=== PATIENT | female | born 1985 | race African-American/Black ===

== ENCOUNTER 2016-08-19 12:28 | Emergency (ER) | payer OTHER ==
[~2016-08-19] VITALS: Ht 160 cm; Wt 60.8 kg
[2016-08-19] MEDS ORDERED: DIPHENHYDRAMINE HCL 25 MG CAPSULE PO ONE (13:30)
--- NOTE | 2016-08-19 13:30 | ED.ADGEN ---
Past Medical History Past Medical History: Other Additional Past Medical Histor: Psych history Past Surgical History: No Surgical History Alcohol Use: None Drug Use: None Adult General Chief Complaint Chief Complaint: OTHER COMPLAINTS HPI HPI Patient is a 30 year old woman, who is on multiple psychoactive medications, who states that she began experiencing muscle shakings in her tongue and jaw today, who presents emergency department for evaluation. Denies any difficulty swallowing or breathing, no chest pain or shortness of breath. She states that she has been compliant with her medications, she does take benztropine, or uses Benadryl, states took her benztropine today but did not use Benadryl. She states she is experiencing similar lesions previously due to her medications. Her medications were last changed in May. [facility], and has not yet followed up with her primary. She contacted her social worker health services who told her to come to the ED for evaluation after he is experiencing fasciculations. She states that Benadryl has helped with this previously. Denies any drugs or alcohol today, states that she drank alcohol smoke cigarettes yesterday, denies any injuries, any sick contacts or exposures , any other complaints. Review of Systems Review of Systems Constitutional: Denies fever or chills. [] Eyes: Denies change in visual acuity. [] HENT: Denies nasal congestion or sore throat. Fasciculations of the mouth and jaw. Respiratory: Denies cough or shortness of breath. [] Cardiovascular: Denies chest pain or edema. [] GI: Denies abdominal pain, nausea, vomiting, bloody stools or diarrhea. [] : Denies dysuria. [] Musculoskeletal: Denies back pain or joint pain. [] Integument: Denies rash. [] Neurologic: Denies headache, focal weakness or sensory changes. [] Endocrine: Denies polyuria or polydipsia. [] Lymphatic: Denies swollen glands. [] Psychiatric: Denies depression or anxiety. [] Current Medications Current Medications Current Medications Medications (Trade) Dose Ordered Sig/Rhys Start Time Stop Time Status Last Admin Dose Admin Diphenhydramine HCl (Benadryl) 25 mg 1X ONCE 08/19/16 13:30 08/19/16 13:31 DC 08/19/16 13:31 25 MG Allergies Allergies Allergies Coded Allergies Type Severity Reaction Last Updated Verified codeine Allergy Unknown 09/24/13 Yes haloperidol Allergy Unknown 09/24/13 Yes risperidone Allergy Unknown 09/24/13 Yes Physical Exam Physical Exam Constitutional: Well developed, well nourished, no acute distress, non-toxic appearance. [] HENT: Normocephalic, atraumatic, bilateral external ears normal, oropharynx moist, no oral exudates, nose normal. [] Eyes: PERRLA, EOMI, conjunctiva normal, no discharge. [] Neck: Normal range of motion, no tenderness, supple, no stridor. [] Cardiovascular:Heart rate regular rhythm, no murmur on S1, S2, rubs or gallops. [] Lungs & Thorax: Bilateral breath sounds clear to auscultation , no wheezing, rhonchi, rales. No chest tenderness or crepitus. [] Abdomen: Bowel sounds normal, soft, no tenderness, no masses, no pulsatile masses. [] Skin: Warm, dry, no erythema, no rash. [] Back: No tenderness, no CVA tenderness. [] Extremities: No tenderness, no cyanosis, no clubbing, ROM intact, no edema. [] Neurologic: Alert and oriented X 3, normal motor function, normal sensory function, no focal deficits noted. Mild tongue fasciculations noted. [] Patient' s speech is clear and uninhibited. Psychologic: Affect normal, judgement normal, mood normal. [] Current Patient Data Lab Values Laboratory Tests Test 08/19/16 13:18 POC Urine HCG, Qualitative Hcg negative (Negative) EKG EKG Not indicated. [] Radiology/Procedures Radiology/Procedures Not indicated.[] Course & Med Decision Making Course & Med Decision Making Pertinent Labs and Imaging studies reviewed. (See chart for details) At time of my evaluation, patient states his symptoms have improved. Noted to still have mild tongue fasciculations occurring consistent with a dystonic reaction from her medications. She has had similar symptoms previously, treated with Benadryl, I did give her 25 malaise Benadryl in the ED, on reevaluation states that she is feeling much better, with resolution of the reaction. We discussed importance of continuing her medications as directed, she has an appointment to follow-up with her psychiatrist in 3 days, will return to the ED if any new or concerning symptoms develop. Patient discharged home in stable condition with all of her medications and perception for Benadryl, with plan as above. Dragon Disclaimer Dragon Disclaimer This electronic medical record was generated, in whole or in part, using a voice recognition dictation system. Departure Impression: Primary Impression: Acute dystonic reaction due to drugs Disposition: HOME, SELF-CARE Condition: IMPROVED Scripts Diphenhydramine Hcl (Benadryl)25 Mg [id number] Mg PO Q6-8HRS PRN DYSTONIC REACTION #14 Prov:JUAN SCHAFFER DO 08/19/16 JUAN SCHAFFER DO Aug 19, 2016 13:30
[2016-08-19] MEDS ORDERED: DIPH25CA58 PO (15:31)
[2016-08-19 16:00] VITALS: BP 114/76
== END 2016-08-19 16:00 | disposition home or self-care (01) ==
LOC: ER 12:28
DX: G24.02 Drug induced acute dystonia (principal); T44.3X5A Adverse effect of other parasympatholytics [anticholinergics and antimuscarinics] and spasmolytics, initial encounter; R25.3 Fasciculation; Z88.5 Allergy status to narcotic agent; Z88.8 Allergy status to other drugs, medicaments and biological substances; Z86.59 Personal history of other mental and behavioral disorders; Y92.89 Other specified places as the place of occurrence of the external cause
CPT/HCPCS: 81025; 99283; Q0163; 99282

== ENCOUNTER 2016-09-06 09:49 | Emergency (ER) | payer OTHER ==
[~2016-09-06] VITALS: Ht 160 cm; Wt 68.5 kg
[~2016-09-06 09:49] MED LIST: DIPH25CA58 PO
[2016-09-06 10:10] VITALS: BP 135/87
[2016-09-06] MEDS ORDERED: HYDROXYZINE IM 50 MG/ML VIAL. IM ONE (11:00)
[2016-09-06] MEDS ORDERED: HYDR25TA PO (11:12)
--- NOTE | 2016-09-06 11:12 | PHYS DOC ---
Past Medical History Past Medical History: Bipolar, Other Additional Past Medical Histor: Psych history, psychosis Past Surgical History: No Surgical History Alcohol Use: Occasionally Drug Use: None Adult General Chief Complaint Chief Complaint: ALLERGIC REACTION HPI HPI This is a 30-year-old female with known history of psychosis he is on multiple antipsychotics who states she's had significant job pain and swelling and is taking benztropine for spasm related to her antipsychotics. She states her jaw pain and swelling is still severe despite taking her medications. Patient states she has no chest pain or shortness of breath. She is speaking in complete sentences and saturating near 100% on room air. Review of Systems Review of Systems Constitutional: Denies fever or chills [] Eyes: Denies change in visual acuity, redness, or eye pain [] HENT: Denies nasal congestion or sore throat [] Respiratory: Denies cough or shortness of breath [] Cardiovascular: No additional information not addressed in HPI [] GI: Denies abdominal pain, nausea, vomiting, bloody stools or diarrhea [] : Denies dysuria or hematuria [] Musculoskeletal: Denies back pain or joint pain [] Integument: Denies rash or skin lesions [] Neurologic: Denies headache, focal weakness or sensory changes [] Endocrine: Denies polyuria or polydipsia [] Current Medications Current Medications Current Medications Medications (Trade) Dose Ordered Sig/Rhys Start Time Stop Time Status Last Admin Dose Admin Hydroxyzine HCl (Vistaril Im) 25 mg 1X ONCE 09/06/16 11:00 09/06/16 11:01 DC 09/06/16 11:15 25 MG Allergies Allergies Allergies Coded Allergies Type Severity Reaction Last Updated Verified codeine Allergy Intermediate 09/06/16 Yes haloperidol Allergy Intermediate 09/06/16 Yes risperidone Allergy Intermediate 09/06/16 Yes Physical Exam Physical Exam Constitutional: Well developed, well nourished, no acute distress, non-toxic appearance. [] HENT: Normocephalic, atraumatic, bilateral external ears normal, oropharynx moist, no oral exudates, nose normal. [] Eyes: PERRLA, EOMI, conjunctiva normal, no discharge. [] Neck: Normal range of motion, no tenderness, supple, no stridor. [] Cardiovascular:Heart rate regular rhythm, no murmur [] Lungs & Thorax: Bilateral breath sounds clear to auscultation [] Abdomen: Bowel sounds normal, soft, no tenderness, no masses, no pulsatile masses. [] Skin: Warm, dry, no erythema, no rash. [] Back: No tenderness, no CVA tenderness. [] Extremities: No tenderness, no cyanosis, no clubbing, ROM intact, no edema. [] Neurologic: Alert and oriented X 3, normal motor function, normal sensory function, no focal deficits noted. [] Psychologic: Affect normal, judgement normal, mood normal. [] Current Patient Data Vital Signs Vital Signs Date Time Temp Pulse Resp B/P Pulse Ox O2 Delivery O2 Flow Rate FiO2 09/06/16 10:10 98.2 98 17 135/87 96 Room Air 98.2 EKG EKG [] Radiology/Procedures Radiology/Procedures [] Course & Med Decision Making Course & Med Decision Making Pertinent Labs and Imaging studies reviewed. 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 There is no indication perform any laboratory workup or imaging. Her exam is essentially benign. She is discharged without incident. Dragon Disclaimer Dragbryanna Disclaimer This electronic medical record was generated, in whole or in part, using a voice recognition dictation system. Departure Departure Impression: Primary Impression: Jaw pain Additional Impression: Jaw swelling Disposition: HOME, SELF-CARE Admitting Physician: Other Condition: STABLE Referrals: UNKNOWN PCP NAME (PCP) Additional Instructions: Please take your medication as prescribed. Return to the ER if you develop any worsening of your symptoms. Follow up closely with your primary doctor in the next several days. Scripts Hydroxyzine Hcl 25 Mg [id number] Mg PO BID PRN jaw swelling #15 TAB Prov:ELFEGO GUZMAN DO 09/06/16 Problem Qualifiers ELFEGO GUZMAN DO Sep 06, 2016 11:12
== END 2016-09-06 11:35 | disposition home or self-care (01) ==
LOC: ER 09:49
DX: R68.84 Jaw pain (principal); R22.0 Localized swelling, mass and lump, head; R25.2 Cramp and spasm; F31.9 Bipolar disorder, unspecified; F29 Unspecified psychosis not due to a substance or known physiological condition; Z88.8 Allergy status to other drugs, medicaments and biological substances; Z88.5 Allergy status to narcotic agent; Z79.899 Other long term (current) drug therapy
CPT/HCPCS: 96372; 99283; J3410

== ENCOUNTER 2016-12-26 09:03 | Emergency (ER) | payer OTHER ==
[~2016-12-26] VITALS: Ht 185.4 cm; Wt 72.1 kg
[~2016-12-26 09:03] MED LIST changes: +HYDR25TA PO
--- NOTE | 2016-12-26 09:12 | PHYS DOC ---
Past Medical History Past Medical History: Bipolar, Other Additional Past Medical Histor: Psych history, psychosis Past Surgical History: No Surgical History Alcohol Use: Occasionally Drug Use: None Adult General Chief Complaint Chief Complaint: OTHER COMPLAINTS [facility] HPI Patient is a 31 year old -[place] female who presents with wanting to stop her court ordered antipsychotics. Patient states she was seen here about 3 months ago and was told to stop taking her antipsychotics and wants a paper stating that she can stop taking them. He states that the medicine makes her tongue swell. She denies any tongue swelling, troubles breathing, swallowing or other concerns. She denies any fevers chills nausea vomiting or abdominal pain. She denies suicidal or homicidal ideations. She states that she can get in to see her primary care physician Dr. Barraza until March. Review of Systems Review of Systems Constitutional: Denies fever or chills [] Eyes: Denies change in visual acuity, redness, or eye pain [] HENT: Denies nasal congestion or sore throat [] Respiratory: Denies cough or shortness of breath [] Cardiovascular: No additional information not addressed in HPI [] GI: Denies abdominal pain, nausea, vomiting, bloody stools or diarrhea [] : Denies dysuria or hematuria [] Musculoskeletal: Denies back pain or joint pain [] Integument: Denies rash or skin lesions [] Neurologic: Denies headache, focal weakness or sensory changes [] Endocrine: Denies polyuria or polydipsia [] Allergies Allergies Allergies Coded Allergies Type Severity Reaction Last Updated Verified codeine Allergy Intermediate 09/06/16 Yes haloperidol Allergy Intermediate 09/06/16 Yes risperidone Allergy Intermediate 09/06/16 Yes Physical Exam Physical Exam Constitutional: Well developed, well nourished, no acute distress, non-toxic appearance. [] HENT: Normocephalic, atraumatic, bilateral external ears normal, oropharynx moist, no oral exudates, nose normal. [] Eyes: PERRLA, EOMI, conjunctiva normal, no discharge. [] Neck: Normal range of motion, no tenderness, supple, no stridor. [] Cardiovascular:Heart rate regular rhythm, no murmur [] Lungs & Thorax: Bilateral breath sounds clear to auscultation [] Abdomen: Bowel sounds normal, soft, no tenderness, no masses, no pulsatile masses. [] Skin: Warm, dry, no erythema, no rash. [] Back: No tenderness, no CVA tenderness. [] Extremities: No tenderness, no cyanosis, no clubbing, ROM intact, no edema. [] Neurologic: Alert and oriented X 3, normal motor function, normal sensory function, no focal deficits noted. [] Psychologic: Affect normal, judgement normal, mood normal. [] Current Patient Data Vital Signs Vital Signs Date Time Temp Pulse Resp B/P (MAP) Pulse Ox O2 Delivery O2 Flow Rate FiO2 12/26/16 09:09 98.3 95 16 123/88 (100) 99 Room Air 98.3 EKG EKG [] Radiology/Procedures Radiology/Procedures [] Impressions: Medication review Course & Med Decision Making Course & Med Decision Making Pertinent Labs and Imaging studies reviewed. (See chart for details) Patient was seen by Tahir who spoke with the patient's social economist and she does have an MYRANDA, which stands for outpatient treatment order by a muck miner blasting that she needs to continue her medications. I reviewed her last ER note which states she needs to continue taking her medicines. She is on medicines for the side effects of her antipsychotics. On my exam she doesn't have any shortness of breath, tongue swelling or other reasons to stop this. She does have a lockstitch front maker that she can follow-up with. She's being discharged home and instructed to continue taking her medicines and return the ER if there is any serious concerns. Return precautions given she is agreeable to the plan and being discharged in stable condition this time. Geraldine Disclaimer Geraldine Disclaimer This electronic medical record was generated, in whole or in part, using a voice recognition dictation system. Departure Departure Impression: Primary Impression: Medication care plan discussed with patient Disposition: HOME, SELF-CARE Condition: STABLE Referrals: UNKNOWN PCP NAME (PCP) Patient Instructions: Generic Medications Additional Instructions: You were seen today in the ER regarding your current medications. You will need to continue these medications as they are court ordered and at this time and do not see a reason for you to stop them. You will need to follow-up with your lockstitch front maker at [facility]. Return ER if you have any troubles breathing, swallowing, or other concerns. HELEN ROJAS MD Dec 26, 2016 09:12
[2016-12-26 10:27] VITALS: BP 120/85
== END 2016-12-26 10:27 | disposition home or self-care (01) ==
LOC: ER 09:03
DX: F29 Unspecified psychosis not due to a substance or known physiological condition (principal); F31.9 Bipolar disorder, unspecified; Z88.5 Allergy status to narcotic agent; Z88.8 Allergy status to other drugs, medicaments and biological substances
CPT/HCPCS: 99284

== ENCOUNTER 2017-01-03 07:35 | Emergency (ER) | payer OTHER ==
[~2017-01-03] VITALS: Ht 170.2 cm; Wt 72.1 kg
[2017-01-03 08:08] VITALS: BP 136/99
[2017-01-03] MEDS ORDERED: diphenhydrAMINE HCL 25 MG CAPSULE PO ONE (08:45)
--- NOTE | 2017-01-03 09:16 | PHYS DOC ---
Past Medical History Past Medical History: Bipolar, Seizure, Schizophrenia, Other Additional Past Medical Histor: Psych history,psychosis,TBI,"ECHOVIRUS, HYPERHYDROSIS" Past Surgical History: No Surgical History Alcohol Use: Occasionally Drug Use: Cocaine, Marijuana Adult General Chief Complaint Chief Complaint: OTHER COMPLAINTS [facility] HPI Patient is a 31 year old female presents to the emergency department stating that she was stung by a bee today. She states that when she woke up she noticed that the bee sting. Patient also states that she feels as though the stinger is traveling throughout her body. Patient states that she is also in a drug rehabilitation for relapse program. Patient states that she has not taken anything for the discomfort. She does state however she is feeling as though this stinger is moving throughout her body Review of Systems Review of Systems Constitutional: Denies fever or chills [] Eyes: Denies change in visual acuity, redness, or eye pain [] HENT: Denies nasal congestion or sore throat [] Respiratory: Denies cough or shortness of breath [] Cardiovascular: No additional information not addressed in HPI [] GI: Denies abdominal pain, nausea, vomiting, bloody stools or diarrhea [] : Denies dysuria or hematuria [] Musculoskeletal: Denies back pain or joint pain [] Integument: Denies rash or skin lesions. Complaint of redness and tenderness to the right posterior thigh. Neurologic: Denies headache, focal weakness or sensory changes [] Endocrine: Denies polyuria or polydipsia [] Current Medications Current Medications Current Medications Medications (Trade) Dose Ordered Sig/Rhys Start Time Stop Time Status Last Admin Dose Admin Diphenhydramine HCl (Benadryl) 25 mg 1X ONCE 01/03/17 08:45 01/03/17 08:46 DC 01/03/17 08:54 25 MG Allergies Allergies Allergies Coded Allergies Type Severity Reaction Last Updated Verified codeine Allergy Intermediate 09/06/16 Yes haloperidol Allergy Intermediate 09/06/16 Yes risperidone Allergy Intermediate 09/06/16 Yes Physical Exam Physical Exam Constitutional: Well developed, well nourished, no acute distress, non-toxic appearance. [] HENT: Normocephalic, atraumatic, bilateral external ears normal, oropharynx moist, no oral exudates, nose normal. [] Eyes: PERRLA, EOMI, conjunctiva normal, no discharge. [] Neck: Normal range of motion, no tenderness, supple, no stridor. [] Cardiovascular:Heart rate regular rhythm Lungs & Thorax: No respiratory distress noted Skin: Warm, dry, no erythema, no rash. Right posterior thigh appears to be slightly red although I do not see any drainage or discharge coming from the site area does not appear to have any streaking noted. Back: No tenderness Extremities: No tenderness, no cyanosis, no clubbing, ROM intact, no edema. [] Neurologic: Alert and oriented X 3, normal motor function, normal sensory function, no focal deficits noted. [] Psychologic: Affect normal, judgement normal, mood normal. [] Current Patient Data Vital Signs Vital Signs Date Time Temp Pulse Resp B/P (MAP) Pulse Ox O2 Delivery O2 Flow Rate FiO2 01/03/17 08:08 98.8 87 16 97 Room Air 98.8 EKG EKG [] Radiology/Procedures Radiology/Procedures [] Course & Med Decision Making Course & Med Decision Making Pertinent Labs and Imaging studies reviewed. (See chart for details) Patient seems to ramble as I am talking with her. She denies taking any recreational drugs at this time. Patient was provided with the Benadryl here in the emergency department. She'll be discharged home in stable condition signs and symptoms to return back to emergency department has been provided. Recommended the patient continue to use Benadryl 25 mg every 6 hours to help with itching and irritation. Also recommended that she follow up with her primary care physician in the next 3-5 days if she continues to have problems and discomfort. Patient agrees with discharge instructions treatment regimens and follow-up recommendations. She'll be discharged home in stable condition. [] Dragon Disclaimer Dragon Disclaimer This electronic medical record was generated, in whole or in part, using a voice recognition dictation system. Departure Departure Impression: Primary Impression: Bee sting Disposition: 01 HOME, SELF-CARE Condition: STABLE Referrals: UNKNOWN PCP NAME (PCP) Patient Instructions: Bee, Wasp, or Hornet Sting Additional Instructions: Keep the area clean and dry. Keep the area as cool as possible to prevent irritation and itching and burning. Benadryl 25 mg every 6 hours as needed for irritation. This medication will cause drowsiness do not take any be alert and oriented. Follow-up with your primary care physician in the next 3-5 days. Return back to the emergency department for signs and symptoms of become worse. BLAKE SANTOS APRN Jan 03, 2017 09:16
== END 2017-01-03 09:20 | disposition home or self-care (01) ==
LOC: ER 07:35
DX: T63.441A Toxic effect of venom of bees, accidental (unintentional), initial encounter (principal); F20.9 Schizophrenia, unspecified; F31.9 Bipolar disorder, unspecified; F14.10 Cocaine abuse, uncomplicated; F12.10 Cannabis abuse, uncomplicated; Z88.5 Allergy status to narcotic agent; Z87.820 Personal history of traumatic brain injury; Z88.8 Allergy status to other drugs, medicaments and biological substances; Y92.89 Other specified places as the place of occurrence of the external cause
CPT/HCPCS: 99282; Q0163

== ENCOUNTER 2017-03-13 11:03 | Emergency (ER) | payer OTHER ==
[~2017-03-13] VITALS: Ht 160 cm; Wt 67.6 kg
--- NOTE | 2017-03-13 11:19 | PHYS DOC ---
Past Medical History Past Medical History: Bipolar, Seizure, Schizophrenia, Other Additional Past Medical Histor: Psych history,psychosis,TBI,"ECHOVIRUS, HYPERHYDROSIS" Past Surgical History: No Surgical History Alcohol Use: Occasionally Drug Use: Cocaine, Marijuana Adult General Chief Complaint Chief Complaint: TONGUE SWELLING/INJURY HPI HPI Patient is a 31 year old female presents to the emergency department with request for a tongue exam. Patient states she is making sure she doesn't have thrush. He has no complaint Review of Systems Review of Systems Constitutional: Denies fever or chills [] Eyes: Denies change in visual acuity, redness, or eye pain [] HENT: Denies nasal congestion or sore throat [] Respiratory: Denies cough or shortness of breath [] Cardiovascular: No additional information not addressed in HPI [] GI: Denies abdominal pain, nausea, vomiting, bloody stools or diarrhea [] : Denies dysuria or hematuria [] Musculoskeletal: Denies back pain or joint pain [] Integument: Denies rash or skin lesions [] Neurologic: Denies headache, focal weakness or sensory changes [] Endocrine: Denies polyuria or polydipsia [] Allergies Allergies Allergies Coded Allergies Type Severity Reaction Last Updated Verified codeine Allergy Intermediate 09/06/16 Yes haloperidol Allergy Intermediate 09/06/16 Yes risperidone Allergy Intermediate 09/06/16 Yes Physical Exam Physical Exam Constitutional: Well developed, well nourished, no acute distress, non-toxic appearance. [] HENT: Normocephalic, atraumatic, bilateral external ears normal, oropharynx moist without evidence of trauma or oral lesions. No evidence of thrush. No oral exudates, nose normal. [] Eyes: PERRLA, EOMI, conjunctiva normal, no discharge. [] Neck: Normal range of motion, no tenderness, supple, no stridor. [] Cardiovascular:Heart rate regular rhythm, no murmur [] Lungs & Thorax: Bilateral breath sounds clear to auscultation [] Abdomen: Bowel sounds normal, soft, no tenderness, no masses, no pulsatile masses. [] Skin: Warm, dry, no erythema, no rash. [] Back: No tenderness, no CVA tenderness. [] Extremities: No tenderness, no cyanosis, no clubbing, ROM intact, no edema. [] Neurologic: Alert and oriented X 3, normal motor function, normal sensory function, no focal deficits noted. [] Psychologic: Affect normal, judgement normal, mood normal. [] EKG EKG [] Radiology/Procedures Radiology/Procedures [] Course & Med Decision Making Course & Med Decision Making Pertinent Labs and Imaging studies reviewed. (See chart for details) [] Dragon Disclaimer Dragon Disclaimer This electronic medical record was generated, in whole or in part, using a voice recognition dictation system. Departure Departure Impression: Primary Impression: Feared condition not demonstrated Disposition: 01 HOME, SELF-CARE Condition: STABLE Referrals: UNKNOWN PCP NAME (PCP) [facility] Additional Instructions: Continue present care ELLA DIXON APRN Mar 13, 2017 11:19
[2017-03-13 11:30] VITALS: BP 123/84
== END 2017-03-13 11:45 | disposition home or self-care (01) ==
LOC: ER 11:03
DX: Z71.1 Person with feared health complaint in whom no diagnosis is made (principal); F31.9 Bipolar disorder, unspecified; F20.9 Schizophrenia, unspecified; Z87.820 Personal history of traumatic brain injury; Z88.5 Allergy status to narcotic agent; Z88.8 Allergy status to other drugs, medicaments and biological substances
CPT/HCPCS: 99281

== ENCOUNTER 2020-06-17 08:11 | Observation (INO) | payer MEDICAID ==
[~2020-06-17] VITALS: Ht 160 cm; Wt 63.6 kg
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
[2020-06-17] MEDS ORDERED: ONDANSETRON PF 4 MG/2 ML VIAL. IVP ONE (09:15)
--- NOTE | 2020-06-17 09:53 | RAD ---
XR CHEST 1V Clinical indications: Cough COMPARISON: September 16, 2013. Findings: No acute lung infiltrate or pleural effusion or pulmonary edema or lung mass or pneumothora x is seen. The heart size, pulmonary vasculature, mediastinum and both inocencio are unremarkable. Impression: No acute radiographic abnormality is seen. Electronically signed by: Gallo Sifuentes MD (06/17/2020 9:51 AM) [id number]
[2020-06-17 10:06] LABS: BASO % 0 % (0-3); EOS % 0 % (0-3); HEMATOCRIT 32.2 % (36.0-47.0); HEMOGLOBIN 11.2 g/dL (12.0-15.5); LYMPH # 1.8 x10^3/uL (1.0-4.8); LYMPH % 26 % (24-48); MEAN CORPUSCULAR HEMOGLOBIN 32 pg (25-35); MEAN CORPUSCULAR HGB CONC 35 g/dL (31-37); MEAN CORPUSCULAR VOLUME 92 fL (79-100); MONO # 0.4 x10^3/uL (0.0-1.1); MONO % 6 % (0-9); NEUT # 4.7 x10^3/uL (1.8-7.7); NEUT % 67 % (31-73); PLATELET COUNT 221 x10^3/uL (140-400); RED BLOOD COUNT 3.49 x10^6/uL (3.50-5.40); RED CELL DISTRIBUTION WIDTH 13.3 % (11.5-14.5); WHITE BLOOD COUNT 6.9 x10^3/uL (4.0-11.0)
[2020-06-17 10:07] LABS: CALCIUM 8.6 mg/dL (8.5-10.1); CREATININE 0.5 mg/dL (0.6-1.0); GFR 171.9; POTASSIUM 3.4 mmol/L (3.5-5.1)
[2020-06-17 10:13] LABS: ALBUMIN 2.7 g/dL (3.4-5.0); ALBUMIN/GLOBULIN RATIO 0.7 (1.0-1.7); MAGNESIUM 1.7 mg/dL (1.8-2.4); TOTAL BILIRUBIN 0.1 mg/dL (0.2-1.0); TOTAL PROTEIN 6.6 g/dL (6.4-8.2); URIC ACID 3.1 mg/dL (2.6-6.0)
--- NOTE | 2020-06-17 11:06 | RAD ---
Limited OB ultrasound greater than 14 weeks 06/17/2020 Clinical History: Patient is approximately 8 months . Abdominal pain. Technique: A real-time ultrasound examination of the gravid uterus was performed. Multiple images wer e obtained. Findings: No previous studies are available for comparison. There is a single living IUP. The fetus is in a cephalic position. cardiac and somatic activity is seen. The heart rate is 144 beats per minutes. The placenta is posterior. No abnormality i s seen. The amniotic fluid volume is within normal limits. The RAJI measures 7.4 cm . Neither maternal ovary is visualized. The following measurements were obtained: BPD 8.66cm 35 weeks 0 days HC 30.77 cm 34weeks to days AC 29.35 cm 33weeks to days FL 6.65 cm 34 weeks to days The estimated gestational age by ultrasound is 34 weeks 2 days plus or minus a standard deviation of 3 weeks. The estimated date of delivery by ultrasound is 07/27/2020. The estimated weight is 228 9 g +/- 339 g (5 lbs. 1 oz.). Detailed evaluation of anatomy was not performed due to the advanced age of this . Impression: Single living IUP with an estimated gestational age by ultrasound of 34 weeks 2 days +/- a standard deviation of 3 weeks. Electronically signed by: Rob Solares MD (06/17/2020 11:04 AM) [id number]
[2020-06-17 11:23] LABS: BILIRUBIN,URINE NEGATIVE (NEG); CLARITY,URINE CLEAR; COLOR,URINE YELLOW; NITRITE,URINE NEGATIVE (NEG); PROTEIN,URINE NEGATIVE (NEG-TRACE)
[2020-06-17 11:29] LABS: BARBITURATES NEG (NEG); BENZODIAZEPINES NEG (NEG); CANNABINOIDS POS (NEG); COCAINE POS (NEG); METHADONE NEG (NEG); OPIATES NEG (NEG); PHENCYCLIDINE NEG (NEG)
[2020-06-17 11:30] LABS: AMPHETAMINE/METHAMPHETAMINE POS (NEG)
[2020-06-17 12:01] LABS: BACTERIA,URINE FEW /HPF (0-FEW); WBC,URINE OCC /HPF (0-4)
[2020-06-17] MEDS ORDERED: LABETALOL 20 MG/4 ML DISP.SYRIN. IVP ONE (12:30)
[2020-06-17] MEDS ORDERED: IV RINGERS,LACTATED 1000ML 1,000 ML IV PRN (12:30)
--- NOTE | 2020-06-17 13:14 | EKG ---
[facility] [address] [place] [address] Test Date: 2020-06-17 Test Time: 09:27:45 Pat Name: RONALD PARKER Department: Room: Gender: F Receiving Coordinator: : 1985 Requested By: ELFEGO HAYES Order Number: [id number] Reading MD: Measurements Intervals Leander Rate: 127 P: 47 NC: 124 QRS: 64 QRSD: 80 T: 33 QT: 294 QTc: 432 Interpretive Statements SINUS TACHYCARDIA OTHERWISE NORMAL ECG RI6.02 No previous ECG available for comparison
[2020-06-17] MEDS ORDERED: TERBUTALINE 1 MG/ML VIAL. SQ ONE (15:00)
[2020-06-17 15:07] VITALS: BP 131/82
[2020-06-17 16:38] LABS: CREATININE,RANDOM URINE 230.6 mg/dL (Not Establ.)
[2020-06-23] MEDS ORDERED: DOCU-153 PO (08:17)
[2020-06-23] MEDS ORDERED: IBUP-1027 PO (08:17)
[2020-06-23] MEDS ORDERED: GABA-689 PO (08:17)
[2020-06-23] MEDS ORDERED: OLAN10TA9 PO (14:22)
[2020-06-23] MEDS ORDERED: DIVA250T PO (14:22)
[2020-06-23] MEDS ORDERED: HYDR25CA PO (14:22)
[2020-06-23] MEDS ORDERED: BENZ1TAB5 PO (14:22)
[2020-06-23] MEDS ORDERED: FLUT16SP NS (14:22)
== END 2020-06-17 18:44 | disposition home or self-care (01) ==
LOC: ER 08:11 → 3 SO LND 11:47 → INTOOBSV 11:47
PROVIDERS: ADMIT Obstetrics & Gynecology; ATTEND Obstetrics & Gynecology
DX: O16.3 Unspecified maternal hypertension, third trimester (principal); Z20.828 Contact with and (suspected) exposure to other viral communicable diseases; O99.323 Drug use complicating pregnancy, third trimester; O99.343 Other mental disorders complicating pregnancy, third trimester; O21.2 Late vomiting of pregnancy; F14.10 Cocaine abuse, uncomplicated; F12.10 Cannabis abuse, uncomplicated; F20.9 Schizophrenia, unspecified; F15.10 Other stimulant abuse, uncomplicated; O99.333 Smoking (tobacco) complicating pregnancy, third trimester; Z3A.34 34 weeks gestation of pregnancy; Z79.899 Other long term (current) drug therapy
CPT/HCPCS: 36415; 71045; 76815; 80053; 80307; 81001; 82570; 82962; 83690; 83735; 84156; 84550; 85025; 86592; 86850; 86900; 86901; 87070; 87426; 87880; 93005; 96372; 96374; 99285; G0378; J2405; J3105; U0003; G0379

== ENCOUNTER 2020-11-20 22:35 | Emergency (ER) | payer MEDICAID ==
[2020-06-24 19:51] VITALS: BP 126/93
[~2020-11-20 22:35] MED LIST changes: +BENZ1TAB5 PO; +DIVA250T PO; +DOCU-153 PO; +FLUT16SP NS; +GABA-689 PO; +HYDR25CA PO; +IBUP-1027 PO; +OLAN10TA9 PO
== END 2020-11-20 23:58 | disposition left against medical advice (07) ==
LOC: ER 22:35
DX: S49.90XA Unspecified injury of shoulder and upper arm, unspecified arm, initial encounter (principal); Z53.21 Procedure and treatment not carried out due to patient leaving prior to being seen by health care provider; X58.XXXA Exposure to other specified factors, initial encounter; Y93.89 Activity, other specified; Y92.89 Other specified places as the place of occurrence of the external cause; Y99.8 Other external cause status

== ENCOUNTER 2021-08-10 02:57 | Emergency (ER) | payer MEDICAID ==
[~2021-08-10] VITALS: Ht 162.6 cm; Wt 45.4 kg
[~2021-08-10 02:57] MED LIST changes: +DOCU-148 PO; -DOCU-153 PO; +OLAN10TA69 PO; -OLAN10TA9 PO
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
[2021-08-10 05:41] VITALS: BP 137/85
== END 2021-08-10 05:45 | disposition home or self-care (01) ==
LOC: ER 02:57
DX: S01.111A Laceration without foreign body of right eyelid and periocular area, initial encounter (principal); S90.415A Abrasion, left lesser toe(s), initial encounter; S00.81XA Abrasion of other part of head, initial encounter; R11.2 Nausea with vomiting, unspecified; G93.0 Cerebral cysts; F31.9 Bipolar disorder, unspecified; F20.9 Schizophrenia, unspecified; Z87.820 Personal history of traumatic brain injury; F17.200 Nicotine dependence, unspecified, uncomplicated; Z88.5 Allergy status to narcotic agent; Z88.8 Allergy status to other drugs, medicaments and biological substances; V49.49XA Driver injured in collision with other motor vehicles in traffic accident, initial encounter; Y93.89 Activity, other specified; Y92.488 Other paved roadways as the place of occurrence of the external cause; Y99.8 Other external cause status
CPT/HCPCS: 70450; 99284-25